=== PATIENT | male | born 1970 | race Caucasian/White ===

== ENCOUNTER 2016-10-22 09:35 | Emergency (ER) | payer OTHER ==
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
[2016-10-22] MEDS ORDERED: Cephalexin 500 MG Cap PO ONE (10:00)
[2016-10-22] MEDS ORDERED: Clindamycin HCl 150 MG Cap PO ONE (10:00)
[2016-10-22 10:01] VITALS: BP 174/94
[2016-10-22] MEDS ORDERED: Bacitracin Oint 1 GM U/D Packet TOP ONE (10:01)
== END 2016-10-22 10:43 | disposition home or self-care (01) ==
LOC: DL.ED 09:35
DX: S61.231A Puncture wound without foreign body of left index finger without damage to nail, initial encounter (principal); S22.41XD Multiple fractures of ribs, right side, subsequent encounter for fracture with routine healing; S46.911D Strain of unspecified muscle, fascia and tendon at shoulder and upper arm level, right arm, subsequent encounter; F17.210 Nicotine dependence, cigarettes, uncomplicated; V89.2XXD Person injured in unspecified motor-vehicle accident, traffic, subsequent encounter
CPT/HCPCS: 81001; 87070; 99283; A9270; 87077; 87186